=== PATIENT | male | born 1980 | race Caucasian/White ===

== ENCOUNTER 2024-02-19 07:00 | Outpatient (NON) | payer MEDICARE, MEDICAID, SELFPAY | END 2024-02-19 07:01 | disposition home or self-care (01) | LOC: ANHLAB 02-20 10:39 | PROVIDERS: PCP Internal Medicine; Visit Provider Internal Medicine Gastroenterology | DX: K29.50 Unspecified chronic gastritis without bleeding (principal); K21.9 Gastro-esophageal reflux disease without esophagitis | CPT/HCPCS: 88305 ==

== ENCOUNTER 2024-02-19 10:51 | Day surgery (SDC) | payer MEDICARE, MEDICAID, SELFPAY ==
[2024-01-27 15:08] VITALS: BMI 33.1
--- NOTE | 2024-02-19 07:02 | P.PNAN_ITS ---
Anes - Initial Pre Proc Eval Procedure: Operation Date: 02/19/24 12:45 Proposed Procedures p Esophagogastroduodenoscopy - Jack German MD Date/Time: 02/19/24 07:02 Surgeon: Jack German MD Pre Op Diagnosis: GERD Patient Data Age: 43 Gender: M Height: 1.75 m Weight: 109 kg Allergies Allergy/AdvReac Type Severity Reaction Status Date / Time No Known Allergies Allergy Mild Verified 02/19/24 11:19 Home Medications Medication Instructions Recorded Confirmed Type lisinopril 10 1 tablet PO DAILY 11/25/23 02/19/24 History mg-hydrochlorothiazide 12.5 mg tablet albuterol sulfate 90 mcg/actuation 2 puff inhalation DIRECTED 02/06/24 02/19/24 History aerosol inhaler famotidine 20 mg tablet 20 mg PO DIRECTED 02/06/24 02/19/24 History omeprazole 20 mg capsule,delayed 20 mg PO DIRECTED 02/06/24 02/19/24 History release sertraline 50 mg tablet 50 mg PO DIRECTED 02/06/24 02/19/24 History Patient hx anesthesia problems: none Family hx anesthesia problems: none Results Review: All pre-operative results and documents have been reviewed as part of the pre- operative evaluation. [facility] Past Medical History Medical History (Updated 02/19/24 @ 12:02 by Jack German MD) Asthma Hypertension Surgical History Surgical History (Updated 11/25/23 @ 13:50 by BAMBI Hook) History of foot surgery Family History Family History (Updated 11/25/23 @ 13:52 by BAMBI Hook) Father Heart disease Hypertension Cancer Mother No problems noted. Sibling Diabetes mellitus Social History Social History (Updated 11/25/23 @ 13:53 by BAMBI Hook) Smoking status: Never smoker Second hand tobacco smoke exposure: Yes Alcohol intake: current Substance use: never Substance use type: does not use Do You Feel Safe in your Home?: Yes Lack of Transportation: No Lack of Food: Never True Current Housing: I Have Housing Concerned About Future Housing: No Difficulty Paying Gas/Electric Bills: No Difficulty Paying for Meds: No Currently Unemployed: No Education: High School Diploma/GED Difficulty w/ Childcare or Family Care: No Living arrangements: with roommate(s) Occupation/Education: occupation 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 Informed Consent: The patient's anesthetic plan and its attendant risks and benefits were discussed with the patient/family/POA. Questions were solicited and answers provided to the satisfaction of the patient/family/POA.
[2024-02-19 11:32] VITALS: BMI 32.8
[2024-02-19 11:33] VITALS: BP 138/100; PULSE 79; RESP 20; TEMP 36.9; O2SAT 100
[2024-02-19] MEDS: LACTATED RINGERS 1,000 ML 150 ML IV CONT (11:35)
--- NOTE | 2024-02-19 12:00 | PM.HPGS ---
History of Present Illness History of Present Illness Consent: Risks, benefits, and alternatives have been discussed and questions answered. Patient agrees to proceed with procedure. Chief complaint: GERD Narrative: Estuardo ALVARADO II II is a 43 year old male referred for EGD. Is a history of acid reflux. In 2008 was found to have grade 4 esophagitis. Since that time he has been maintained on PPI therapy. Most recently patient has been maintained on omeprazole 20mg p.o. daily. He reports famotidine was added at bedtime in attempt to decrease use PPI therapy. Patient denies any bleeding. He denies any dysphagia. His heartburn symptoms have been well controlled recently. EGD is requested to exclude any underlying conditions such as Roper's esophagus. There is no family history. Review of Systems Review of Systems: All systems reviewed & are unremarkable except as noted in HPI and below PMFSH Past Medical History Medical History (Updated 02/19/24 @ 12:02 by Jack German MD) Asthma Hypertension Surgical History Surgical History (Updated 11/25/23 @ 13:50 by BAMBI Hook) History of foot surgery Family History Family History (Updated 11/25/23 @ 13:52 by BAMBI Hook) Father Heart disease Hypertension Cancer Mother No problems noted. Sibling Diabetes mellitus Social History Social History (Updated 11/25/23 @ 13:53 by BAMBI Hook) Smoking status: Never smoker Second hand tobacco smoke exposure: Yes Alcohol intake: current Substance use: never Substance use type: does not use Do You Feel Safe in your Home?: Yes Lack of Transportation: No Lack of Food: Never True Current Housing: I Have Housing Concerned About Future Housing: No Difficulty Paying Gas/Electric Bills: No Difficulty Paying for Meds: No Currently Unemployed: No Education: High School Diploma/GED Difficulty w/ Childcare or Family Care: No Living arrangements: with roommate(s) 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/Education: occupation 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 Gender identity (if verbalized by the patient): Male Meds Home Medications and Allergies Home Medications Medication Instructions Recorded Confirmed Type lisinopril 10 1 tablet PO DAILY 11/25/23 02/19/24 History mg-hydrochlorothiazide 12.5 mg tablet albuterol sulfate 90 mcg/actuation 2 puff inhalation DIRECTED 02/06/24 02/19/24 History aerosol inhaler famotidine 20 mg tablet 20 mg PO DIRECTED 02/06/24 02/19/24 History omeprazole 20 mg capsule,delayed 20 mg PO DIRECTED 02/06/24 02/19/24 History release sertraline 50 mg tablet 50 mg PO DIRECTED 02/06/24 02/19/24 History Allergies Allergy/AdvReac Type Severity Reaction Status Date / Time No Known Allergies Allergy Mild Verified 02/19/24 11:19 Vital Signs Vital Signs - 24 hr 02/19/24 11:33 Temperature 98.5 F Pulse Rate 79 Respiratory Rate 20 Blood Pressure 138/100 H Pulse Oximetry 100 Oxygen Delivery Room Air Exam Narrative: Physical exam reveals patient to be alert. Vital signs stable. HEENT exam is unremarkable. Patient is anicteric. Lungs are clear to auscultation and percussion. Heart is without murmur or extra sounds. Abdomen bowel sounds are present soft nontender with no organomegaly. Assessment and Plan Assessment and plan (1) Chronic GERD: Code(s): K21.9 - Gastro-esophageal reflux disease without esophagitis Status: Acute Assessment and Plan: Is a history of GE reflux disease. In 2008 had significant ulcerative esophagitis. Follow-up EGD requested at this time. Further recommendations may be given after endoscopy.
[2024-02-19 12:39] VITALS: BP 91/62; PULSE 78; RESP 15; O2SAT 97
--- NOTE | 2024-02-19 12:41 | WPDANESPN ---
Anes - Prog Note Post-Op Date/Time: 02/19/24 12:41 Cardiovascular status: normal Respiratory status: normal Airway patency: baseline Mental status: baseline Post-Op hydration status: normal Vital Signs: Last Vital Signs Temp 36.9 C 02/19/24 11:33 Pulse 79 02/19/24 11:33 Resp 20 02/19/24 11:33 BP 138/100 H 02/19/24 11:33 Pulse Ox 100 02/19/24 11:33 O2 Del Method Room Air 02/19/24 11:33 Pain Score (VAS): 0 I/O: Intake & Output 02/18/24 02/19/24 02/19/24 23:59 07:59 15:59 Intake Total 100 Balance 100 Post-procedural complaints: none Patient Feedback: Patient satisfied with anesthetic care. Other Findings: Patient vital signs back to baseline. Patient denies nausea and vomiting. Patient's pain under control. Patient OK for discharge.
[2024-02-19 12:49] VITALS: BP 91/61; PULSE 66; RESP 16; O2SAT 98
[2024-02-19 12:59] VITALS: BP 112/72; PULSE 72; RESP 16; O2SAT 100
== END 2024-02-19 13:11 | disposition home or self-care (01) ==
PROVIDERS: PCP Internal Medicine; Visit Provider Internal Medicine Gastroenterology
PROC: 0DJ08ZZ Inspection of Upper Intestinal Tract, Via Natural or Artificial Opening Endoscopic (ICD-10-PCS; CPT 43235; principal; 2024-02-19 12:45)
DX: K21.9 Gastro-esophageal reflux disease without esophagitis (principal); K22.10 Ulcer of esophagus without bleeding
CPT/HCPCS: 43239

== ENCOUNTER 2024-11-19 18:59 | Emergency (ER) | payer OTHER, MEDICARE, MEDICAID, SELFPAY ==
--- NOTE | ~2024-11-19 | XR_ITS ---
EXAM: XR hand LT min 3V DATE: 11/19/2024 23:22 HISTORY: attention thumb, deformity, recent fracture . COMPARISON: None available. FINDINGS: Normal mineralization. Oblique fracture in the proximal and medial aspect of the left firs t proximal phalanx, with intra-articular extension, slight distraction and rotation of the fracture f ragment, 1 mm step-off at the articular surface, and possible early callus formation. No lytic or louisa stic lesion. Joint spaces are maintained. No erosion or periosteal change. Soft tissues within normal limits. IMPRESSION: Slightly distracted and rotated oblique intra-articular fracture of the proximal left fir st phalanx, with 1 mm articular surface step-off. Suggestion of early healing changes indicating this may be a subacute fracture. Reviewed, dictated and finalized at location K. IMPRESSION: Slightly distracted and rotated oblique intra-articular fracture of the proximal left first phalanx, with 1 mm articular surface step-off. Suggest ion of early healing changes indicating this may be a subacute fracture.
[2024-11-19 19:01] VITALS: BP 191/112; PULSE 100; RESP 18; TEMP 36.6; O2SAT 100
--- OUTSIDE RECORDS SUMMARY | 2024-11-19 19:01 | XMS_ITS | Clinical Summary ---
Author Organization [facility] Address [facility] [place] [address] Care Team Providers Care Wet Process Technician Name Role Phone None, Provider MD Primary Care Provider Unavaila ble Allergies No known active allergies Medications HYDROcodone-acet aminophen (NORCO) 5-325 MG tabletIndication s:Acute Pain < 7 Day Supply Take 1 tablet by mouth every 6 (six) hours as needed. Indications : Acute Pain < 7 Day Supply 15 tablet 09/27/2024 Active Encounters Date Type Department Care Team Description 11/19/2024 6:34 PM CDT - 11/19/2024 6:38 PM CDT Emergency [facility] [address] Rita Nelson PA Finger pain Discharge Disposition: Home or Self Care (Routine Discharge) 11/19/2024 Travel 10/01/2024 Telephone [facility] [address] [address] Kemal Pappas MD Appointment Request 09/27/2024 7:44 PM CDT - 09/27/2024 8:04 PM CDT Emergency [facility] [address] Levi Hook PA Hand Pain Discharge Disposition: Home or Self Care (Routine Discharge) 09/27/2024 Travel 09/17/2024 10:04 PM CDT - 09/18/2024 12:10 AM CDT Emergency [facility] [address] Ivan Piedra MD Laceration; Hand Pain Discharge Disposition: Home or Self Care (Routine Discharge) 09/17/2024 Travel from Last 3 Months Immunizations Immunization Administration Dates Next Due Tdap (Boostrix) 09/17/2024 Social History Tobacco Use Types Packs/Day Years Used Date Smoking Tobacco: Never Smokeless Tobacco: Never Tobacco Cessation:Counseling Given: Not Answered Alcohol Use Standard Drinks/Week Comments Never 0 (1 standard drink = 0.6 oz pur e alcohol) Sex and Gender Information Value Date Recorded Sex Assigned at Male 09/17/2024 9:20 PM CDT 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 Gender Identity Not on file Sexual Orientation Not on file Last Filed Vital Signs Vital Sign Reading Time Taken Comments Blood Pressure 157/99 11/19/2024 6:27 PM CDT Pulse 93 11/19/2024 6:27 PM CDT Temperature 36.1 C (96.9 F) 11/19/2024 6:27 PM CDT Respiratory Rate 18 11/19/2024 6:27 PM CDT Oxygen Saturation 98% 11/19/2024 6:27 PM CDT Inhaled Oxygen Concentration - - Weight 106.8 kg (235 lb 7.2 oz) 11/19/2024 6:27 PM CDT Height 177.8 cm (5' 10) 11/19/2024 6:27 PM CDT Body Mass Index 33.78 11/19/2024 6:27 PM CDT Plan of Treatment Health Maintenance Due Date Last Done Comments Colorectal Cancer Screening Colonoscopy (10 Years) 1978 Annual Physical 1981 Hepatitis C 1996 Hepatitis B Vaccines (1 of 3 - 19+ 3-dose series) 1997 COVID-19 Vaccine (2 - 2023-2 5 season) 2024 02/16/2021 PHQ-2 (Physician [place] [facility] [place]) 05/05/2024 DTaP, Tdap and Td Vaccines ( 3 - Td or Tdap) 09/17/2034 09/17/2024, 05/15/2022 HPV Vaccines Aged Out No longer eligi ble based on patient's age to complete this topic Meningococcal B Vaccine Aged Out No l onger eligible based on patient's age to complete this topic Meningococcal Vaccine Aged Out No maxwell jorge luis eligible based on patient's age to complete this topic Pneumococcal Vaccine: Pediatrics (0 to 5 Years) and At-Risk Patients (6 to 49 Years) Aged Out No longer eligible b ased on patient's age to complete this topic RSV Immunizations Under 20 Months Aged Out No longer eligible b ased on patient's age to complete this topic Procedures Procedure Name Priority Date/Time Associated Diagnosis Comments SUTURE REMOVAL Routine 09/27/2024 8:45 PM CDT LACERATION REPAIR Routine 09/17/2024 11: 29 PM CDT XR HAND LT 3V STAT 09/17/2024 9:30 PM CDT from Last 3 Months Results * Suture Removal (09/27/2024 8:45 PM CDT) Thien Addison MD - 09/27/2024 8:45 PM CDT Thien Vega MD 09/27/2024 9:51 PM Suture Removal Date/Time: 09/27/2024 8:45 PM Performed by: OSEI Newsome Authorized by: OSEI Newsome Consent: Consent obtained: Verbal Consent given by: Patient Risks discussed: Pain and bleeding Location: Location: Upper extremity Upper extremity location: Hand Hand location: L thumb Procedure details: Wound appearance: No signs of infection, good wound healing and clean Number of sutures removed: 7 Post-procedure details: Post-removal: Band-Aid applied Procedure completion: Tolerated Levi FRANZ PROCEDURE/MINOR SURGICAL OR DERABLES Final Result * Lac Repair (09/17/2024 11:29 PM CDT) Ivan Barboza MD - 09/17/2024 11:29 PM CDT Ivan Piedra MD 09/17/2024 11:32 PM Lac Repair Date/Time: 09/17/2024 11:29 PM Performed by: Ivan Piedra MD Authorized by: Ivan Piedra MD Consent: Consent obtained: Verbal Consent given by: Patient Risks, benefits, and alternatives were discussed: yes Risks discussed: Infection, retained foreign body, pain and need for additional repair [place] protocol: Patient identity confirmed: Verbally with patient Anesthesia: Anesthesia method: None Laceration details: Location: Finger Finger location: L thumb Length (cm): 7 Pre-procedure details: Preparation: Patient was prepped and draped in usual sterile fashion and imaging obtained to evaluate for foreign bodies Treatment: Area cleansed with: Chlorhexidine Amount of cleaning: Standard Irrigation solution: Sterile saline Irrigation volume: 150 mL Irrigation method: Pressure wash Skin repair: Repair method: Sutures Suture size: 4-0 Suture material: Nylon Suture technique: Simple interrupted Number of sutures: 7 Approximation: Approximation: Close Repair type: Repair type: Simple Post-procedure details: Dressing: Non-adherent dressing Procedure completion: Tolerated well, no immediate complications Ivan Piedra MD PROCEDURE/MINOR SURGICA L ORDERABLES Final Result * XR HAND LT 3V (09/17/2024 9:30 PM CDT) Anatomical Region Laterality Modality Hand Radiographic Anny ging 09/17/2024 9:40 PM CDT Impressions 09/17/2024 9:42 PM CDT IMPRESSION: Irregular osseous injury/fracture with a longitudinal orientation involving the palmar aspect of the proximal first phalanx. Overlying soft tissue irregularity consistent with given history of laceration. Referred By: Interpreted By: Singh Rubalcava MD, 09/17/2024 9:40 PM Narrative 09/17/2024 9:42 PM CDT [address] [address] Examination: XR HAND LT 3V Exam time: 09/17/2024 9:20 PM Indication: Thumb laceration. Comparison: None available. Technique: 3 views of the left hand, 3 images. Findings: There is an irregular osseous injury/fracture involving the palmar aspect of the proximal first phalanx. There appears to be associated soft tissue irregularity consistent with given history of laceration. No other acute osseous injuries are seen. Mild degenerative changes of the first CMC and triscaphe joint. Procedure Note Singh Rubalcava MD - 09/17/2024 [facility] [address] [place], [place] [address] Examination: XR HAND LT 3V Exam time: 09/17/2024 9:20 PM Indication: Thumb laceration. Comparison: None available. Technique: 3 views of the left hand, 3 images. Findings: There is an irregular osseous injury/fracture involving thepalmar aspect of the proximal first phalanx. There appears to beassociated soft tissue irregularity consistent with given history oflaceration. No other acute osseous injuries are seen. Mild degenerativechanges of the first CMC and triscaphe joint. IMPRESSION: Irregular osseous injury/fracture with a longitudinalorientation involving the palmar aspect of the proximal first phalanx.Overlying soft tissue irregularity consistent with given history oflaceration. Referred By: Interpreted By: Singh Rubalcava MD, 09/17/2024 9:40 PM Clifton Matos NP GENERAL IMAGING Final Result from Last 3 Months Insurance [employer] Care Teams Wet Process Technician Relationship Specialty Start Date End Date None, Provider, PCP - General UNKNOWN PHYSICIAN SPECIALTY 05/05/24
--- OUTSIDE RECORDS SUMMARY | 2024-11-19 19:01 | XMS_ITS | Encounter Summary ---
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 Wish to be (Past 1 Month) No 11/19/2024 6:29 PM ALMAT Haley Marie RN Act pankaj 2. Non-Specific Active Suicidal Thoughts (Past 1 Month) No 11/19/2024 6:29 PM CDT Haley Marie RN Ac tive 6. Suicidal Behavior (Lifetime) No 11/19/2024 6:29 PM ALMAT Haley Marie RN Act pankaj documented as of this encounter Plan of Treatment Not on file documented as of this encounter Visit Diagnoses Not on filedocumented in this encounter Care Teams Public Relations Analyst Relationship Specialty Start Date End Date None, Provider, PCP - General UNKNOWN PHYSICIAN SPECIALTY 05/05/24 documented as of this encounter
--- OUTSIDE RECORDS SUMMARY | 2024-11-19 19:01 | XMS_ITS | Encounter Summary ---
Author Organization [facility] Address [address] [place] [address] Care Team Providers Care Pari Mutual Ticket Checker Name Role Phone None, Provider MD Primary Care Provider Unavaila ble Reason for Visit * Reason Comments Finger pain Encounter Details Date Type Department Care Team (Late st Contact Info) Description 11/19/2024 6:34 PM CDT - 11/19/2024 6:38 PM CDT Emergency [facility] Emergency Room [place], [place] [id number] Rita Nelson PA [address] [place] [id number] Finger pain Discharge Disposition: Home or Self Care (Routine Discharge) Social History Tobacco Use Types Packs/Day Years Used Date Smoking Tobacco: Never Smokeless Tobacco: Never Alcohol Use Standard Drinks/Week Comments Never 0 (1 standard drink = 0.6 oz pur e alcohol) Sex and Gender Information Value Date Recorded Sex Assigned at Male 09/17/2024 9:20 PM CDT 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 Wish to be (Past 1 Month) No 11/19/2024 6:29 PM CDT Haley Marie RN Act pankaj 2. Non-Specific Active Suicidal Thoughts (Past 1 Month) No 11/19/2024 6:29 PM CDT Haley Marie RN Act pankaj 6. Suicidal Behavior (Lifetime) No 11/19/2024 6:29 PM CDT Haley Marie RN Act pankaj documented as of this encounter Medications at Time of Discharge HYDROcodone-aceta minophen (NORCO) 5-325 MG tabletIndications :Acute Pain < 7 Day Supply Take 1 tablet by mouth every 6 (six) hours as needed. Indications: Acute Pain < 7 Day Supply 15 tablet 09/27/2024 documented as of this encounter ED Notes * Haley Marie RN - 11/19/2024 6:28 PM CDT Patient presents to triage stating he can't move his left thumb. States he had a fracture and laceration in September. Supposed to see a hand doctor on Friday and wants his xrays for that visit. documented in this encounter Plan of Treatment Not on file documented as of this encounter Visit Diagnoses Diagnosis Encounter for medical screening examination- Primary documented in this encounter Care Teams Pari Mutual Ticket Checker Relationship Specialty Start Date End Date None, Provider, PCP - General UNKNOWN PHYSICIAN SPECIALTY 05/05/24 documented as of this encounter
--- OUTSIDE RECORDS SUMMARY | 2024-11-19 19:01 | XMS_ITS | Clinical Summary ---
Author Organization [facility] Address [address] [place] [address] Care Team Providers Care Manager Poker Name Role Phone Rohan Coronel MD Primary Care Provider [phone] Source Comments [facility],non-owned Affiliates and Associated Physician Practices is amultiple site organization consisting of ambulatory clinics and hospital sitesin [place], [place], [place] and [place]. This disclosure is being madepursuant to the Care Everywhere program and may not contain all information available regarding this patient. Last updated 18.[facility] Allergies No known active allergies Medications * Be aware that medications may not be up to date on this document. Alwaysverify current medications with the patient. OMEPRAZOLE PO Active amoxicillin-cla vulanate (AUGMENTIN) 500-125 MG tablet Take 1 tablet by mouth 2 times daily with morning and evening meal 14 tablet 01/27/2020 Active Active Problems Problem Noted Date Diagnosed Date Closed fracture of right orbital floor 0 Fracture of medial orbital w all, right side, initial encounter for closed fracture 01/27/2020 Social History Tobacco Use Types Packs/Day Years Used Date Smoking Tobacco: Never Assessed Sex and Gender Information Value Date Recorded Sex Assigned at Not on file Legal Sex Male 8:24 AM CDT Gender Identity Not on file Sexual Orientation Not on file Plan of Treatment Health Maintenance Due Date Last Done Comments COLOGUARD (AGES 45-75) - COL ON CA SCREENING 1978 COLON MONITORING 1978 COLONOSCOPY - COLON CA SCREENING 1978 CT COLONOGRAPHY - COLON CA SCREENING 1978 Colorectal Cancer Screening 1978 FIT - COLON CA SCREENING 1978 FLEX SIG - COLON CA SCREENING 1978 LIPID TESTING 1978 HIV SCREENING 1993 HEPATITIS C SCREENING 10/27/1996 DTAP/TDAP/TD VACCINES (1 - Tdap) 1997 HEPATITIS B VACCINE (1 of 3 - 19+ 3-dose series) 1997 COVID-19 VACCINE (1 - 2023-2 5 season) 2024 DEPRESSION SCREENING 05/05/2024 MEDICARE AWV CALENDAR YEAR 2024 INFLUENZA VACCINE (#1) 2025 ZOSTER VACCINE (1 of 2) 2028 HIB VACCINE Aged Out No longer eligi ble based on patient's age to complete this topic HPV VACCINE Aged Out No longer eligi ble based on patient's age to complete this topic MENINGOCOCCAL (Group B) VACC INE SHARED DECISION-MAKING Aged Out No longer eligibl e based on patient's age to complete this topic MENINGOCOCCAL GROUPS A/C/Y/W VACCINE Aged Out No longer eligible b ased on patient's age to complete this topic PNEUMOCOCCAL VACCINE Aged Out No long er eligible based on patient's age to complete this topic Insurance MEDICARE MEDICAID - [place] SELF PAY NO INSURANCE Member Subscriber Plan / Payer (Ef fective for All Dates) Name:Estuardo Douglas MAR Member ID:Not on file Relation to Subscriber:Not on file Name:ESTUARDO DOUGLAS II Subscriber ID:Not on file (Home) Address: [address] [place] [id number] Payer ID:Not on file Group ID:Not on file Type:Self Pay Address: [place], [place] UHC MANAGED MEDICARE ADV Care Teams Manager Poker Relationship Specialty Start Date End Date Rohan Coronel MD [address] [place] [address] PCP - General 01/25/20
--- OUTSIDE RECORDS SUMMARY | 2024-11-19 22:12 | XMS_ITS | Encounter Summary ---
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
--- OUTSIDE RECORDS SUMMARY | 2024-11-19 22:12 | XMS_ITS | Clinical Summary ---
Author Organization [facility] Address [facility] [place] [address] Care Team Providers Care Product Development Worker Name Role Phone None, Provider MD Primary [...] CDT - 11/19/2024 6:38 PM CDT Emergency [facility] [place] [address] Rita Nelson PA Finger pain Discharge Disposition: Home or Self Care (Routine Discharge) 11/19/2024 Travel 10/01/2024 Telephone [facility] Orthopedic [facility] Medicine [address] [address] Kemal Pappas MD Appointment Request 09/27/2024 7:44 PM CDT - 09/27/2024 8:04 PM CDT Emergency [facility] [place] [address] Levi Hook PA Hand Pain Discharge Disposition: Home or Self Care (Routine Discharge) 09/27/2024 Travel 09/17/2024 10:04 PM CDT - 09/18/2024 12:10 AM CDT Emergency [facility] [place] [address] Ivan Piedra MD Laceration; Hand Pain Discharge [...] PM CDT Legal Sex Male 11:26 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 RN Gender Identity Not on file Sexual Orientation [...] 2023-2 5 season) 2024 02/16/2021 PHQ-2 (Physician [place]) 05/05/2024 DTaP, Tdap and Td Vaccines ( [...] body, pain and need for additional repair [place] protocol: Patient identity confirmed: Verbally with patient [...] 9:40 PM Narrative 09/17/2024 9:42 PM CDT [address] [address] Examination: XR HAND LT 3V Exam time: [...] Procedure Note Singh Rubalcava MD - 09/17/2024 [facility] [address] [place], [place] [address] Examination: XR HAND LT 3V Exam time: [...] Last 3 Months Insurance [employer] Care Teams Product Development Worker Relationship Specialty Start Date End Date None, Provider, PCP - General UNKNOWN PHYSICIAN SPECIALTY 05/05/24
--- OUTSIDE RECORDS SUMMARY | 2024-11-19 22:12 | XMS_ITS | Encounter Summary ---
Author Organization [facility] Address [address] [place] [address] Care Team Providers Care Customer Service Rep Name Role Phone None, Provider MD Primary Care Provider Unavaila ble Reason for Visit * Reason Comments Finger pain Encounter Details Date Type Department Care Team (Late st Contact Info) Description 11/19/2024 6:34 PM CDT - 11/19/2024 6:38 PM CDT Emergency [facility] Emergency Room [place], [place] [id number] Rita Nelson PA [address] [place] [id number] Finger pain Discharge Disposition: Home or Self Care (Routine Discharge) Social History Tobacco Use Types Packs/Day Years Used Date Smoking Tobacco: Never Smokeless Tobacco: Never Alcohol Use Standard Drinks/Week Comments Never 0 (1 standard drink = 0.6 oz pur e alcohol) Sex and Gender Information Value Date Recorded Sex Assigned at Male 09/17/2024 9:20 PM CDT Legal Sex Male 11:26 AM 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
--- OUTSIDE RECORDS SUMMARY | 2024-11-19 22:12 | XMS_ITS | Clinical Summary ---
Author Organization [facility] [employer] Address [address] [place] [address] Care Team Providers Care Psych Specialist Name Role Phone Rohan Coronel MD Primary Care Provider [phone] Source Comments [facility] [employer],non-owned Affiliates and Associated Physician Practices is amultiple site organization consisting of ambulatory clinics and hospital sitesin [place], [place], [place] and [place]. This disclosure is being madepursuant to the Care Everywhere program and may not contain all information available regarding this patient. Last updated 18.[facility] [employer] Allergies No known active allergies Medications * [...] II Subscriber ID:Not on file (Home) Address: [address] [place] [id number] Payer ID:Not on file Group ID:Not on file Type:Self Pay Address: [place], [place] UHC MANAGED MEDICARE ADV Care Teams Psych Specialist Relationship Specialty Start Date End Date Rohan Coronel MD [address] [place] [address] PCP - General 01/25/20
--- NOTE | 2024-11-19 23:31 | ED_ITS ---
HPI - Extremity Injury (Upper) General Chief Complaint: Extremity Injury, Upper Stated Complaint: left thumb injury Time Seen by Provider: 11/19/24 21:57 History of Present Illness HPI narrative: 44-year-old male presenting to the emergency department for evaluation of a subacute left thumb injury. He states that in early September he had a laceration and fracture of his left thumb that was repaired at outside hospital. Since then he has been having some increased pain and feels like it is not healing appropriately. The top layer of skin is healed and the sutures have been removed but he states that the bone feels deformed and he still has pain with limited range of motion. No new injuries or trauma. He has an upcoming appointment with a hand surgeon on Friday of this upcoming week. He wants x- rays before that appointment. No other injuries or new concerns. Related Data Home Medications ?Medication ?Instructions ?Recorded ?Confirmed ?Last Taken ?Type lisinopril 10 1 tablet PO DAILY 11/25/23 02/19/24 02/19/24 History mg-hydrochlorothiazide 12.5 mg tablet albuterol sulfate 90 mcg/actuation 2 puff inhalation DIRECTED 02/06/24 02/19/24 Unknown History aerosol inhaler famotidine 20 mg tablet 20 mg PO DIRECTED 02/06/24 02/19/24 02/19/24 History omeprazole 20 mg capsule,delayed 20 mg PO DIRECTED 02/06/24 02/19/24 02/19/24 History release sertraline 50 mg tablet 50 mg PO DIRECTED 02/06/24 02/19/24 02/18/24 History Allergies Allergy/AdvReac Type Severity Reaction Status Date / Time No Known Allergies Allergy Mild Verified 02/19/24 11:19 Review of Systems Review of Systems: As reviewed above in HPI [facility] Past Medical History Medical History Asthma Hypertension Surgical History Surgical History History of foot surgery Family History Family History Father Heart disease Hypertension Cancer Mother No problems noted. Sibling Diabetes mellitus Social History Social History Smoking status: Never smoker Second hand tobacco smoke exposure: Yes Alcohol intake: current Substance use: never Substance use type: does not use Do You Feel Safe in your Home?: Yes Lack of Transportation: No Lack of Food: Never True Current Housing: I Have Housing Concerned About Future Housing: No Difficulty Paying Gas/Electric Bills: No Difficulty Paying for Meds: No Currently Unemployed: No Education: High School Diploma/GED Difficulty w/ Childcare or Family Care: No Living arrangements: with roommate(s) Occupation/Education: occupation 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 Mucous membranes moist. NECK: Supple. CHEST: [Clear to auscultation. No respiratory distress.] HEART: [Regular rate and rhythm]. No murmur heard. [Normal peripheral pulses.] ABDOMEN: [Soft, nondistended], [nontender], [No rigidity or guarding] EXTREMITIES: Left thumb at the base has an old healing laceration site that is intact but there is some deformity to the curvature of the thumb with some mild restricted range of motion but chronic in appearance. Able to flex at the interphalangeal joint and MCP joint. No new injury appreciable. Able to oppose each digit, some reproducible pain with palpation on the medial aspect near the old laceration site. SKIN: Warm, dry, no rash. NEURO: [No focal deficits]. Alert and oriented [x3.] PSYCH: [Normal mood and affect.] Course Vital Signs Vital signs: Vital Signs Temperature 36.6 C 11/19/24 19:01 Pulse Rate 100 11/19/24 19:01 Respiratory Rate 18 11/19/24 19:01 Blood Pressure 191/112 H 11/19/24 19:01 Pulse Oximetry 100 11/19/24 19:01 Oxygen Delivery Room Air 11/19/24 19:01 Temperature 36.6 C 11/19/24 19:01 Pulse Rate 100 11/19/24 19:01 Respiratory Rate 18 11/19/24 19:01 Blood Pressure 191/112 H 11/19/24 19:01 Pulse Oximetry 100 11/19/24 19:01 Oxygen Delivery Room Air 11/19/24 19:01 MDM - Extremity Injury (Upper) MDM Narrative Medical decision making narrative: 44-year-old male presenting to the emergency department for evaluation of a subacute left thumb injury. He states that in early September he had a laceration and fracture of his left thumb that was repaired at outside hospital. Since then he has been having some increased pain and feels like it is not healing appropriately. The top layer of skin is healed and the sutures have been removed but he states that the bone feels deformed and he still has pain with limited range of motion. No new injuries or trauma. He has an upcoming appointment with a hand surgeon on Friday of this upcoming week. He wants x- rays before that appointment. No other injuries or new concerns. Left thumb at the base has an old healing laceration site that is intact but there is some deformity to the curvature of the thumb with some mild restricted range of motion but chronic in appearance. Able to flex at the interphalangeal joint and MCP joint. No new injury appreciable. Able to oppose each digit, some reproducible pain with palpation on the medial aspect near the old laceration site. X-rays were obtained and given the subacute nature and probable poor healing of his fracture he will still need follow-up with his orthopedic/hand surgeon specialist this week. No acute concerns today and patient was offered analgesia and politely declined. X-ray shows subacute fracture with early healing changes and distracted/rotated intra-articular fracture. Again this is from September with no new injury or new concerns and patient was made aware of the plan for continued follow-up with Orthopedics on Friday for their assessment and plan. Patient was safe for discharge at this time. Medical Records Attestation: I reviewed the patient's medical records. Imaging Data Attestation: I personally reviewed and interpreted this imaging study as follows: My impression: Impressions Hand X-Ray 11/19/24 23:22 IMPRESSION: Slightly distracted and rotated oblique intra-articular fracture of the proximal left first phalanx, with 1 mm articular surface step-off. Suggestion of early healing changes indicating this may be a subacute fracture. Discharge Plan Discharge Clinical Impression: Non-healing fracture, Pain of left thumb Patient Disposition: Home Condition: Stable Instructions: Antibiotic Form, Thumb Fracture (ED) Additional Instructions: Your x-ray today shows an angulated and rotated fracture of the left 1st phalanx in the thumb with a surface step-off indicative of an poorly healing fracture. The hand surgeon and specialist on Friday will be able to better evaluate and offer plan for treatment and they will have access to these images and the report. Follow-up with them and return with any emergent concerns. Patient Language: [place] Prescriptions: No Action lisinopril-hydrochlorothiazide 10-12.5 mg tablet 1 tablet PO DAILY famotidine 20 mg tablet 20 mg PO DIRECTED omeprazole 20 mg capsule,delayed release(DR/EC) 20 mg PO DIRECTED albuterol sulfate 90 mcg/actuation HFA aerosol inhaler 2 puff INHALATION DIRECTED sertraline 50 mg tablet 50 mg PO DIRECTED Follow-up/Referrals: Sarina Centeno MD [Physician] - (appt friday) Haider,MD Levi [Primary Care Provider] - Time of Disposition: 23:36
== END 2024-11-19 23:50 | disposition home or self-care (01) ==
PROVIDERS: Emergency Provider Student in an Organized Health Care Education/Training Program; PCP Internal Medicine
DX: S62.512G Displaced fracture of proximal phalanx of left thumb, subsequent encounter for fracture with delayed healing (principal); J45.909 Unspecified asthma, uncomplicated; I10 Essential (primary) hypertension; Z77.22 Contact with and (suspected) exposure to environmental tobacco smoke (acute) (chronic); Z79.899 Other long term (current) drug therapy; X58.XXXD Exposure to other specified factors, subsequent encounter
CPT/HCPCS: 73130; 99283

== ENCOUNTER 2024-12-16 17:33 | Emergency (ER) | payer MEDICARE, MEDICAID, SELFPAY ==
--- NOTE | ~2024-12-16 | XR_ITS ---
EXAM: XR shoulder RT min 2V DATE: 12/16/2024 22:42 HISTORY: right shoulder pain . COMPARISON: None available. FINDINGS: Normal mineralization. No fracture or dislocation. No lytic or blastic lesion. Mild degene rative changes at the AC joint and glenohumeral joint. No erosion or periosteal change. Soft tissues within normal limits. IMPRESSION: No acute osseous finding in the right shoulder. Reviewed, dictated and finalized at location K.
--- NOTE | ~2024-12-16 | CT_ITS ---
EXAMINATION: CT cervical spine wo con DATE: 12/16/2024 22:33 INDICATION: right arm pain, paresthesias TECHNIQUE: Computed tomography (CT) of the cervical spine was performed without intravenous contrast. Automated exposure control and iterative reconstruction technique were employed. The dose-length pro duct was 572.52 mGy-cm. COMPARISON: None. FINDINGS: Vertebral Body Alignment: Intact. Straightening of the upper cervical spine. Craniocervical and atlantoaxial alignment: Moderate degenerative change. Alignment intact. Osseous structures/fracture: No evidence of a lytic or blastic process in the visualized spine. No e vidence of acute fracture. Cervical soft tissues: The paraspinal soft tissues planes are maintained. Degenerative changes: Multilevel degenerative disc disease, moderate at C3-4. Multilevel mild facet a rthropathy. Severe left neural foraminal narrowing at C3-4 secondary to degenerative facet and uncove rtebral joint changes. No severe central canal narrowing. IMPRESSION: No acute fracture or traumatic malalignment in the cervical spine. Reviewed, dictated and finalized at location K.
--- OUTSIDE RECORDS SUMMARY | 2024-12-16 17:35 | XMS_ITS | Clinical Summary ---
Author Organization [facility] [employer] Address [address] [place] [address] Care Team Providers Care Wildlife Conservation Officer Name Role Phone Rohan Coronel MD Primary Care Provider [phone] Source Comments [facility] [employer],non-owned Affiliates and Associated Physician Practices is amultiple site organization consisting of ambulatory clinics and hospital sitesin [place], [place], [place] and [place]. This disclosure is being madepursuant to the Care Everywhere program and may not contain all information available regarding this patient. Last updated 18.[facility] [employer] Allergies No known active allergies Medications * [...] II Subscriber ID:Not on file (Home) Address: [address] [place] [phone] Payer ID:Not on file Group ID:Not on file Type:Self Pay Address: [place], [place] UHC MANAGED MEDICARE ADV Care Teams Wildlife Conservation Officer Relationship Specialty Start Date End Date Rohan Coronel MD [address] [place] [address] PCP - General 01/25/20
--- OUTSIDE RECORDS SUMMARY | 2024-12-16 17:35 | XMS_ITS | Clinical Summary ---
Author Organization [facility] Address [facility] [place] [address] Care Team Providers Care Concrete Block Molder Name Role Phone None, Provider MD Primary [...] CDT - 11/19/2024 6:38 PM CDT Emergency [facility] [place] [address] Rita Nelson PA Finger pain Discharge Disposition: Home or Self Care (Routine Discharge) 11/19/2024 Travel 10/01/2024 Telephone [facility] Orthopedic & Sports Medicine [address] [address] Kemal Pappas MD Appointment Request 09/27/2024 7:44 PM CDT - 09/27/2024 8:04 PM CDT Emergency [facility] [address] Levi Hook PA Hand Pain Discharge Disposition: Home or Self Care (Routine Discharge) 09/27/2024 Travel 09/17/2024 10:04 PM CDT - 09/18/2024 12:10 AM CDT Emergency [facility] [place] [address] Ivan Piedra MD Laceration; Hand Pain Discharge [...] PM CDT 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 Gender Identity Not on file Sexual Orientation [...] 2023-2 5 season) 2024 02/16/2021 PHQ-2 (Physician [place]) 05/05/2024 DTaP, Tdap and Td Vaccines ( 3 - Td or Tdap) 09/17/2034 09/17/2024, 05/15/2022 Meningococcal B Vaccine Aged Out No l [...] body, pain and need for additional repair [place] protocol: Patient identity confirmed: Verbally with patient [...] 9:40 PM Narrative 09/17/2024 9:42 PM CDT [address] [address] Examination: XR HAND LT 3V Exam time: [...] Procedure Note Singh Rubalcava MD - 09/17/2024 [address] [place], [place] [address] Examination: XR HAND LT 3V Exam time: [...] Final Result from Last 3 Months Insurance [facility] Care Teams Concrete Block Molder Relationship Specialty Start Date End Date None, Provider, PCP - General UNKNOWN PHYSICIAN SPECIALTY 05/05/24
[2024-12-16 18:15] VITALS: BP 151/91; PULSE 96; RESP 18; TEMP 36.4; O2SAT 100
--- NOTE | 2024-12-16 22:20 | ED.EXTPRO ---
HPI - Extremity Problem General Chief complaint: Extremity Problem,Nontraumatic Stated complaint: R. sided shoulder pain w/ hand tingling x2days Time Seen by Provider: 12/16/24 22:07 Source: patient Mode of arrival: ambulatory Limitations: no limitations History of Present Illness HPI Narrative: This is a 44 year old male that presents to the ER for right shoulder pain. Reports pain radiates into the lower arm. Reports intermittent paresthesias to the right hand. No recent injuries or trauma. Related Data Home Medications ?Medication ?Instructions ?Recorded ?Confirmed ?Last Taken ?Type lisinopril 10 1 tablet PO DAILY 11/25/23 02/19/24 02/19/24 History mg-hydrochlorothiazide 12.5 mg tablet albuterol sulfate 90 mcg/actuation 2 puff inhalation DIRECTED 02/06/24 02/19/24 Unknown History aerosol inhaler famotidine 20 mg tablet 20 mg PO DIRECTED 02/06/24 02/19/24 02/19/24 History omeprazole 20 mg capsule,delayed 20 mg PO DIRECTED 02/06/24 02/19/24 02/19/24 History release sertraline 50 mg tablet 50 mg PO DIRECTED 02/06/24 02/19/24 02/18/24 History Allergies Allergy/AdvReac Type Severity Reaction Status Date / Time No Known Allergies Allergy Mild Verified 12/16/24 18:18 Review of Systems Review of Systems: All systems reviewed & are unremarkable except as noted in HPI and below PMFSH Past Medical History Medical History Asthma Hypertension Surgical History Surgical History History of foot surgery Family History Family History Father Heart disease Hypertension Cancer Mother No problems noted. 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 HEAD: Normocephalic, atraumatic. EYES: EOMI. NECK: Supple. No adenopathy or masses. CHEST: No respiratory distress. HEART: Regular rate EXTREMITIES: Normal range of motion. No edema, erythema. Normal radial pulse. Strength equal in bilateral upper extremities (5/5) SKIN: Warm, dry, no rash. NEURO: No focal deficits. Alert and oriented x3. PSYCH: Normal mood and affect Course Vital Signs Vital signs: Vital Signs Temperature 97.6 F 12/16/24 18:15 Pulse Rate 96 12/16/24 18:15 Respiratory Rate 18 12/16/24 18:15 Blood Pressure 151/91 H 12/16/24 18:15 Pulse Oximetry 100 12/16/24 18:15 Oxygen Delivery Room Air 12/16/24 18:15 Temperature 97.6 F 12/16/24 18:15 Pulse Rate 96 12/16/24 18:15 Respiratory Rate 18 12/16/24 18:15 Blood Pressure 151/91 H 12/16/24 18:15 Pulse Oximetry 100 12/16/24 18:15 Oxygen Delivery Room Air 12/16/24 18:15 MDM - Extremity (Nontraumatic) MDM Narrative Medical decision making narrative: Patient presents the emergency department for right shoulder pain, arm pain, intermittent tingling in the right hand. Patient is afebrile and nontoxic appearing. He is neurovascularly intact. Right shoulder x-ray without acute osseous abnormalities. Cervical spine CT shows degenerative disc disease. No acute findings. Patient updated on his workup and agrees with plan of care. Will be given follow-up with Orthopedics. He was given warnings to return to the ER Differential Diagnosis Differential diagnosis: Likely other (Shoulder impingement, cervical radiculopathy) Imaging Data Radiologist's impression: ITS Impressions Cervical Spine CT 12/16/24 22:36 IMPRESSION: No acute fracture or traumatic malalignment in the cervical spine. Shoulder X-Ray 12/16/24 22:48 IMPRESSION: No acute osseous finding in the right shoulder. Critical Care Time Critical Care Time Critical Care Time: No Discharge Plan Discharge Clinical Impression: Acute pain of right shoulder, Degenerative disc disease Patient Disposition: Home Condition: Stable Instructions: Degenerative Disc Disease (ED), Shoulder Pain (ED) Additional Instructions: Return to the ER if you experience fever, redness and swelling of your arm, weakness, numbness, or any other symptoms that are concerning to you Rest, use ice/heat, take anti-inflammatories (Aleve, Ibuprofen, Naproxen, etc) or Tylenol as needed for pain as well as muscle relaxer (Flexeril) as needed for pain. Muscle relaxers can make you drowsy, do not drive if you take this. Take steroid taper as prescribed Follow up with orthopedics Patient Language: [place] Prescriptions: New methylprednisolone 4 mg tablets,dose pack See Rx Instructions .ROUTE .COMPLEX Qty: 21 0RF Rx Instructions: orally per package directions cyclobenzaprine 10 mg tablet 10 mg PO TID PRN (Reason: muscle spasm) Qty: 14 0RF No Action lisinopril-hydrochlorothiazide 10-12.5 mg tablet 1 tablet PO DAILY famotidine 20 mg tablet 20 mg PO DIRECTED omeprazole 20 mg capsule,delayed release(DR/EC) 20 mg PO DIRECTED albuterol sulfate 90 mcg/actuation HFA aerosol inhaler 2 puff INHALATION DIRECTED sertraline 50 mg tablet 50 mg PO DIRECTED Follow-up/Referrals: Haider,MD Levi [Primary Care Provider] -
--- OUTSIDE RECORDS SUMMARY | 2024-12-16 22:52 | XMS_ITS | Clinical Summary ---
Author Organization [facility] [employer] Address [address] [place] [address] Care Team Providers Care Power Sweeper Operator Name Role Phone Rohan Coronel MD Primary Care Provider [phone] Source Comments [facility] [employer],non-owned Affiliates and Associated Physician Practices is amultiple site organization consisting of ambulatory clinics and hospital sitesin [place], [place], [place] and [place]. This disclosure is being madepursuant to the Care Everywhere program and may not contain all information available regarding this patient. Last updated 18.[facility] [employer] Allergies No known active allergies Medications * [...] II Subscriber ID:Not on file (Home) Address: [address] [place] [id number] Payer ID:Not on file Group ID:Not on file Type:Self Pay Address: [place], [place] UHC MANAGED MEDICARE ADV Care Teams Power Sweeper Operator Relationship Specialty Start Date End Date Rohan Coronel MD [address] [place] [address] PCP - General 01/25/20
--- OUTSIDE RECORDS SUMMARY | 2024-12-16 22:52 | XMS_ITS | Clinical Summary ---
Author Organization [facility] Address Formerly [facility] [place] [address] Care Team Providers Care Scale Shooter Name Role Phone None, Provider MD Primary [...] CDT - 11/19/2024 6:38 PM CDT Emergency [facility] [place] [address] Rita Nelson PA Finger pain Discharge Disposition: Home or Self Care (Routine Discharge) 11/19/2024 Travel 10/01/2024 Telephone [facility] [address] [address] Kemal Pappas MD Appointment Request 09/27/2024 7:44 PM CDT - 09/27/2024 8:04 PM CDT Emergency [place] [address] Levi Hook PA Hand Pain Discharge Disposition: Home or Self Care (Routine Discharge) 09/27/2024 Travel 09/17/2024 10:04 PM CDT - 09/18/2024 12:10 AM CDT Emergency [facility] [place] [address] Ivan Piedra MD Laceration; Hand Pain Discharge [...] PM CDT 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 Gender Identity Not on file Sexual Orientation [...] 2023-2 5 season) 2024 02/16/2021 PHQ-2 (Physician [place]) 05/05/2024 DTaP, Tdap and Td Vaccines ( [...] body, pain and need for additional repair [place] protocol: Patient identity confirmed: Verbally with patient [...] 9:40 PM Narrative 09/17/2024 9:42 PM CDT [address] [address] Examination: XR HAND LT 3V Exam time: [...] Procedure Note Singh Rubalcava MD - 09/17/[address] [place], [place] [address] Examination: XR HAND LT 3V Exam time: [...] Singh Rubalcava MD, 09/17/2024 9:40 PM Clifton Mtaos NP GENERAL IMAGING Final Result from Last 3 Months Insurance [facility] Care Teams Scale Shooter Relationship Specialty Start Date End Date None, Provider, PCP - General UNKNOWN PHYSICIAN SPECIALTY 05/05/24
[2024-12-16 23:41] VITALS: BP 146/83; PULSE 91; RESP 15; O2SAT 100
[2024-12-16 23:55] VITALS: BP 146/83; PULSE 91; RESP 15; O2SAT 100
== END 2024-12-16 23:57 | disposition home or self-care (01) ==
PROVIDERS: Emergency Provider Physician Assistant; PCP Internal Medicine
DX: M25.511 Pain in right shoulder (principal); M50.31 Other cervical disc degeneration, high cervical region; M48.02 Spinal stenosis, cervical region; J45.909 Unspecified asthma, uncomplicated; I10 Essential (primary) hypertension; Z77.22 Contact with and (suspected) exposure to environmental tobacco smoke (acute) (chronic)
CPT/HCPCS: 72125; 73030; 99284